=== PATIENT | male | born 1990 | race Caucasian/White ===

== ENCOUNTER 2017-02-10 15:26 | Inpatient (IN) | payer BC ==
[~2017-02-10] VITALS: Ht 172.7 cm; Wt 70.0 kg
[2017-02-10] MEDS ORDERED: IPRATROPIUM 0.02% SOLN 0.5MG/2.5 ML NEB INH ONE (15:45)
[2017-02-10] MEDS ORDERED: ALBUTEROL SULFATE 2.5 MG/0.5 ML INH NEB SOLN INH ONE ×2 (15:45)
[2017-02-10] MEDS ORDERED: ALBU17IN2 INH (16:00)
[2017-02-10] MEDS ORDERED: ALBU20IN INH (16:00)
[2017-02-10 16:24] LABS: MEAN CORPUSCULAR HEMOGLOBIN 28.7 pg (27.0-33.0); MEAN CORPUSCULAR HGB CONC 33.2 g/dl (32.0-36.5); MEAN CORPUSCULAR VOLUME 86.6 fl (80.0-96.0); RED CELL DISTRIBUTION WIDTH 12.8 % (11.5-14.5)
[2017-02-10 16:45] LABS: METHADONE URINE NEGATIVE (NEGATIVE)
[2017-02-10 16:54] LABS: ALBUMIN 3.9 GM/DL (3.2-5.2); ALBUMIN/GLOBULIN RATIO 1.08 (1.00-1.93); ALKALINE PHOSPHATASE 92 U/L (45-117); ALT/SGPT 367 U/L (12-78); ANION GAP 8 MEQ/L (8-16); AST/SGOT 207 U/L (15-37); BILIRUBIN,DIRECT 0.3 MG/DL (0.0-0.2); BILIRUBIN,TOTAL 0.6 MG/DL (0.2-1.0); BLOOD UREA NITROGEN 11 MG/DL (7-18); CALCIUM LEVEL 8.8 MG/DL (8.5-10.1); CARBON DIOXIDE LEVEL 29 MEQ/L (21-32); CHLORIDE LEVEL 106 MEQ/L (98-107); CREATININE FOR GFR 1.02 MG/DL (0.70-1.30); GLOMERULAR FILTRATION RATE > 60.0 (>60); GLUCOSE, FASTING 86 MG/DL (70-105); POTASSIUM SERUM 4.6 MEQ/L (3.5-5.1); SODIUM LEVEL 143 MEQ/L (136-145); TOTAL PROTEIN 7.5 GM/DL (6.4-8.2)
[2017-02-10] MEDS ORDERED: LORazepam 1 MG TAB PO ONE (20:00)
[2017-02-11] MEDS ORDERED: ADV500INH INH (12:15)
[2017-02-11] MEDS ORDERED: ALB2.5NEB INH (12:15)
[2017-02-11 18:23] VITALS: BP 130/80
[2017-02-11] MEDS: ALBUTEROL 90 MCG/ACT 8GM HFA INHALER INH PRN ×2 (18:35→21:49)
[2017-02-11] MEDS ORDERED: MOM 30ML SUSPENSION UDC PO PRN (19:00)
[2017-02-11] MEDS ORDERED: MAALOX 30 ML SUSP *UDC PO PRN (19:00)
[2017-02-11] MEDS ORDERED: ALBUTEROL SULFATE 2.5 MG/0.5 ML INH NEB SOLN NEB PRN (19:00)
[2017-02-11] MEDS: traZODone 50 MG TAB PO PRN (21:32)
[2017-02-11] MEDS: ADVAIR DISKUS 500/50 INH PWD INH SCH (21:33)
[2017-02-11] MEDS: ACETAMINOPHEN TAB 650MG DOSE (2X325MG) PO PRN (21:33)
[2017-02-12 06:39] VITALS: BP 133/68
[2017-02-12] MEDS: ADVAIR DISKUS 500/50 INH PWD INH SCH ×2 (08:54→20:35)
[2017-02-12] MEDS: ALBUTEROL 90 MCG/ACT 8GM HFA INHALER INH PRN ×2 (08:54→20:35)
--- NOTE | 2017-02-12 09:59 | HPEPDOC ---
Medical History and Physical Date of Admission Feb 11, 2017 at 14:03 History and Physical PCP: [facility] ATTENDING: Dr. Matthew Stokes HPI:26yoM admitted to [facility] for other specified depressive disorder, being medically examined today. No acute medical complaints today. Denies any fevers, chills, weakness, fatigue, JACOBO, CP, SOB, cough, palpitations, abdominal pain, N/V /D or changes in bowel or bladder habits. PMHx: Depression Anxiety Substance use Asthma Chronic hepatitis C PSHX: Tooth extraction SOCHX: Resides in: [place] Marital Status: Single Kids: 1 Employment: [employer] Tobacco use: Denies ETOH: Denies Illicit Drugs: History of heroin, crack, cocaine, marijuana. States he went to rehabilitation at [facility] and finished 10/02/16. Relapsed 3 days ago on crack cocaine. IV Drug Use: History of heroin Tattoos done unprofessionally: Denies FAMHX: Mother: Alive, well Father: Alive, well Siblings: 2 sisters Alive, well Children: Alive, well Unexpected deaths due to medical reasons: None. ROS: As noted in HPI, otherwise 11pt ROS of systems reviewed and unremarkable PE: GEN: 26yoM, appears stated age. Well-nourished, well developed. No acute distress. Alert and oriented x 3. Pleasant, interactive. HEENT: Normocephalic, atraumatic. Pupils are equal, round, and reactive to light. Extraocular movements are intact. No nystagmus appreciated. Sclera are nonicteric. Conjunctiva without injection. Nose midline. Nasal turbinates without bogginess. EACs both patent BL. TMs both visualized and tamez with good cone of light, no bulging or erythema. No facial asymmetry. Moist mucous membranes. Dentition fair. Pharynx pink and moist, no cobblestoning. Neck supple , trachea midline. No lymphadenopathy or thyromegaly appreciated. CHEST: Regular rate and rhythm, +S1, +S2 LUNGS: Clear to auscultation bilaterally. No wheezes, rales, or rhonchi. Breathing appears symmetric and easy. Patient is speaking in full sentences. No accessory muscle use. ABD: Round, soft, non-tender, non-distended. +Bowel sounds throughout. No rebound or guarding. No costovertebral angle tenderness. EXT: Pulses 2+ bilaterally dorsalis pedis and radial. No lower extremity edema appreciated. SKIN: [place], dry, warm. Capillary refill <2sec. No rashes. NEURO: Alert and oriented x 3. Cranial nerves III-XII are intact. No focal deficits appreciated. EKG: Pending. A&P: 26yoM admitted to [facility] for other specified depressive disorder 1. Psych. Plan per Psychiatry. Obtain baseline EKG to assure the safety of psychiatric medications as they can prolong the QT interval. 2. Asthma. Continue Advair. Continue albuterol 2 puffs every 4 hours as needed. 3. Chronic hepatitis C. Additional testing requested including quantitative RNA , fibrosure, genotype. Arrange appointment with infectious disease at discharge. 4. Elevated LFTs. Recheck CMP. Check right upper quadrant ultrasound. Possibly related to chronic hepatitis C. 5. Follow up with PCP on discharge. 6. Substance use. Per psychiatry. Vital Signs Vital Signs Label Value Date Time Patient Temperature 97.0 degrees F 02/12/17 0639 Temperature Source Tympanic 02/12/17 0639 Pulse 97 02/12/17 0639 Respiratory Rate 16 bpm 02/12/17 0639 Blood Pressure Assessment 133/68 (89) 02/12/17 0639 Bedside Pulse Oximetry 94 % 02/11/17 1823 Item Value Date Time Oxygen Delivery Method Room Air 02/11/17 182 Laboratory Data Labs 24H Item Value Date Time White Blood Count 6.0 K/mm3 02/10/17 1607 Red Blood Count 5.58 M/mm3 02/10/17 1607 Hemoglobin 16.0 g/dl 02/10/17 1607 Hematocrit 48.3 % 02/10/17 1607 Mean Corpuscular Volume 86.6 fl 02/10/17 1607 Mean Corpuscular Hemoglobin 28.7 pg 02/10/17 1607 Mean Corpuscular Hemoglobin Concent 33.2 g/dl 02/10/17 1607 Red Cell Distribution Width 12.8 % 02/10/17 1607 Platelet Count 217 k/mm3 02/10/17 1607 Sodium Level 143 MEQ/L 02/10/17 1607 Potassium Level 4.6 MEQ/L 02/10/17 1607 Chloride Level 106 MEQ/L 02/10/17 1607 Carbon Dioxide Level 29 MEQ/L 02/10/17 1607 Anion Gap 8 MEQ/L 02/10/17 1607 Blood Urea Nitrogen 11 MG/DL 02/10/17 1607 Creatinine 1.02 MG/DL 02/10/17 1607 Glomerular Filtration Rate > 60.0 02/10/17 1607 Fasting Glucose 86 MG/DL 02/10/17 1607 Calcium Level 8.8 MG/DL 02/10/17 1607 Total Bilirubin 0.6 MG/DL 02/10/17 1607 Direct Bilirubin 0.3 MG/DL H 02/10/17 1607 Aspartate Amino Transf (AST/SGOT) 207 U/L H 02/10/17 1607 Alanine Aminotransferase (ALT/SGPT) 367 U/L H 02/10/17 1607 Alkaline Phosphatase 92 U/L 02/10/17 1607 Total Protein 7.5 GM/DL 02/10/17 1607 Albumin 3.9 GM/DL 02/10/17 1607 Albumin/Globulin Ratio 1.08 02/10/17 1607 Thyroid Stimulating Hormone (TSH) 0.717 uIU/ML 02/10/17 1607 Salicylates Level < 1.7 MG/DL L 02/10/17 1607 Urine Opiates Screen NEGATIVE 02/10/17 1607 Urine Methadone Screen NEGATIVE 02/10/17 1607 Acetaminophen Level < 2.0 UG/ML L 02/10/17 1607 Urine Barbiturates Screen NEGATIVE 02/10/17 1607 Urine Phencyclidine Screen NEGATIVE 02/10/17 1607 Urine Amphetamines Screen NEGATIVE 02/10/17 1607 Urine Benzodiazepines Screen NEGATIVE 02/10/17 1607 Urine Cocaine Metabolite Screen POSITIVE H 02/10/17 1607 Urine Cannabinoids Screen NEGATIVE 02/10/17 1607 Ethyl Alcohol Level < 0.003 % 02/10/17 1607 Home Medications Scheduled Salmeterol/Fluticasone (Advair Diskus 500-50 Mcg/Dose) 28 Puff/Inhaler Aerp 1 PUFF INH BID Scheduled PRN Albuterol Sulfate (Proventil Hfa) 167 Puff/6.7 Gm Aers 2 PUFFS INH QID PRN PRN SHORTNESS OF BREATH Albuterol Sulfate (Albuterol Sulfate) 2.5 Mg/0.5 Ml Neb 2.5 MG INH Q6H PRN PRN SHORTNESS OF BREATH Allergies Coded Allergies: No Known Allergies (Unverified , 02/10/17) Viktoriya Stokes Feb 12, 2017 09:59
[2017-02-12] MEDS: ACETAMINOPHEN TAB 650MG DOSE (2X325MG) PO PRN ×2 (13:48→20:35)
[2017-02-12 14:10] LABS: ALBUMIN 3.9 GM/DL (3.2-5.2); ALBUMIN/GLOBULIN RATIO 1.18 (1.00-1.93); ALKALINE PHOSPHATASE 96 U/L (45-117); ALT/SGPT 308 U/L (12-78); ANION GAP 13 MEQ/L (8-16); AST/SGOT 148 U/L (15-37); BILIRUBIN,TOTAL 0.5 MG/DL (0.2-1.0); BLOOD UREA NITROGEN 9 MG/DL (7-18); CARBON DIOXIDE LEVEL 22 MEQ/L (21-32); CHLORIDE LEVEL 106 MEQ/L (98-107); CREATININE FOR GFR 0.99 MG/DL (0.70-1.30); GLOMERULAR FILTRATION RATE > 60.0 (>60); GLUCOSE, FASTING 118 MG/DL (70-105); POTASSIUM SERUM 4.3 MEQ/L (3.5-5.1); SODIUM LEVEL 141 MEQ/L (136-145); TOTAL PROTEIN 7.2 GM/DL (6.4-8.2)
[2017-02-12 18:00] VITALS: BP 133/69
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
[2017-02-12] MEDS: traZODone 50 MG TAB PO PRN (20:35)
--- NOTE | 2017-02-13 00:44 | ECGEPIP ---
Stationary ECG Study [facility] Test Date: 2017-02-12 Pat Name: BREA HERMAN Department: Room: [place] [address] Gender: M [employer] Teacher: DAHLIA : 1990 Requested By: Viktoriya Stokes Order Number: [id number] Reading MD: Moe Siddiqi Measurements Intervals [place] Rate: 68 P: 78 IL: 159 QRS: 84 QRSD: 94 T: 73 QT: 374 QTc: 400 Interpretive Statements SINUS RHYTHM WITH SINUS ARRHYTHMIA POSSIBLE LEFT ATRIAL ENLARGEMENT INCOMPLETE RIGHT BUNDLE BRANCH BLOCK NO PRIOR TRACING Electronically Signed On 02-13-2017 0:44:34 EDT by Moe Siddiqi
[2017-02-13 06:00] VITALS: BP 115/60
[2017-02-13 08:48] LABS: ALBUMIN 3.7 GM/DL (3.2-5.2); ALBUMIN/GLOBULIN RATIO 1.16 (1.00-1.93); ALKALINE PHOSPHATASE 87 U/L (45-117); ALT/SGPT 257 U/L (12-78); ANION GAP 9 MEQ/L (8-16); AST/SGOT 102 U/L (15-37); BILIRUBIN,TOTAL 0.5 MG/DL (0.2-1.0); BLOOD UREA NITROGEN 7 MG/DL (7-18); CALCIUM LEVEL 8.8 MG/DL (8.5-10.1); CARBON DIOXIDE LEVEL 29 MEQ/L (21-32); CHLORIDE LEVEL 105 MEQ/L (98-107); CREATININE FOR GFR 1.01 MG/DL (0.70-1.30); GLOMERULAR FILTRATION RATE > 60.0 (>60); GLUCOSE, FASTING 84 MG/DL (70-105); POTASSIUM SERUM 4.2 MEQ/L (3.5-5.1); SODIUM LEVEL 143 MEQ/L (136-145); TOTAL PROTEIN 6.9 GM/DL (6.4-8.2)
[2017-02-13] MEDS: ADVAIR DISKUS 500/50 INH PWD INH SCH ×2 (08:50→20:27)
[2017-02-13 10:25] LABS: HEPATITIS B SURFACE ANTIBODY POSITIVE (POSITIVE)
[2017-02-13 18:00] VITALS: BP 124/75
[2017-02-13] MEDS: traZODone 50 MG TAB PO PRN (23:00)
[2017-02-13] MEDS: ALBUTEROL 90 MCG/ACT 8GM HFA INHALER INH PRN (23:01)
[2017-02-13] MEDS: ACETAMINOPHEN TAB 650MG DOSE (2X325MG) PO PRN (23:01)
[2017-02-14 06:23] VITALS: BP 148/99
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
--- NOTE | 2017-02-14 08:22 | REP ---
Abdominal right upper quadrant ultrasound for elevated liver function tests: There is no cholelithiasis, gallbladder wall thickening or pericholecystic fluid. The gallbladder is partially contracted despite the patient being n.p.o. since midnight. There is no intrahepatic or extrahepatic biliary duct dilatation, the common duct is 2.7 mm diameter. The hepatic parenchyma is homogeneous. There are no hepatic masses. The visualized portion of the pancreatic head is unremarkable. The right kidney is normal size measuring 11.4 cm craniocaudad length. There is no right renal hydronephrosis, calculus, mass or cyst. There is no free fluid in the abdominal right upper quadrant. Impression: Essentially negative abdominal right upper quadrant ultrasound. Signed by Julius Sauer MD 02/14/2017 08:13 A
[2017-02-14] MEDS: ADVAIR DISKUS 500/50 INH PWD INH SCH ×2 (09:35→23:07)
[2017-02-14 18:00] VITALS: BP 125/82
--- NOTE | 2017-02-14 19:33 | IPN ---
DATE: 02/14/2017 Discussed Mr. Krause with discharge planning. Discharge planning also called the mother as I did yesterday. Apparently, mother is getting the joshua to the apartment and apparently, according to her, the apartment of Mr. Krause will be available through March. If he gets evicted, it would still take until April for him to leave. He has repeatedly told the office workforce planner that he does not want to go to rehabilitation. We will, once again, suggest inpatient rehabilitation and psychiatric followup to evaluate his possible bipolar disorder. No medication at this time. The patient's eye contact is good. Speech is still somewhat rapid with increased volume. He denies hallucinations, delusions, obsessions, compulsions, phobias. His affect is bright. Judgment is poor. Mood is good. He is fully oriented with full fund of information, denying obsessions, compulsions, and phobias. PLAN: Suggest to patient the need for further inpatient rehabilitation and evaluation. DIAGNOSES: 1. Adjustment disorder with depressed mood. 2. Polysubstance dependence. 3. Rule out bipolar disorder. Prognosis is poor based on patient's past history and drug use.
[2017-02-14] MEDS: traZODone 50 MG TAB PO PRN (23:06)
[2017-02-15 06:22] VITALS: BP 137/73
[2017-02-15 08:36] LABS: ALBUMIN 3.6 GM/DL (3.2-5.2); ALBUMIN/GLOBULIN RATIO 1.03 (1.00-1.93); ALKALINE PHOSPHATASE 87 U/L (45-117); ALT/SGPT 216 U/L (12-78); ANION GAP 9 MEQ/L (8-16); AST/SGOT 97 U/L (15-37); BILIRUBIN,TOTAL 0.3 MG/DL (0.2-1.0); BLOOD UREA NITROGEN 11 MG/DL (7-18); CALCIUM LEVEL 8.6 MG/DL (8.5-10.1); CARBON DIOXIDE LEVEL 30 MEQ/L (21-32); CHLORIDE LEVEL 104 MEQ/L (98-107); CREATININE FOR GFR 0.94 MG/DL (0.70-1.30); GLOMERULAR FILTRATION RATE > 60.0 (>60); GLUCOSE, FASTING 105 MG/DL (70-105); POTASSIUM SERUM 4.3 MEQ/L (3.5-5.1); SODIUM LEVEL 143 MEQ/L (136-145); TOTAL PROTEIN 7.1 GM/DL (6.4-8.2)
[2017-02-15] MEDS: ADVAIR DISKUS 500/50 INH PWD INH SCH ×2 (09:12→20:44)
[2017-02-15 18:00] VITALS: BP 134/68
[2017-02-15] MEDS: ACETAMINOPHEN TAB 650MG DOSE (2X325MG) PO PRN (20:45)
[2017-02-15] MEDS: traZODone 50 MG TAB PO PRN (23:20)
--- NOTE | 2017-02-16 00:11 | IPN ---
DATE: 02/15/2017 Met with Mr. Krause, and I have discussed with him his need to ensure that he has outpatient plans. The patient does not want to go to inpatient drug rehabilitation despite our recommendation. internet media planner and myself have spoken with his mother . The patient will be returning to his apartment apparently and his outpatient planning will be both in mental health and in drug rehabilitation. MENTAL STATUS EXAMINATION: The patient is pleasant in appearance and appropriate. Eye contact is good. Speech volume is normal, slightly rapid and mood is good, affect is bright. Denies hallucinations or delusions. Intact memory, immediate and remote. Orientation is full in three spheres. There are no loose associations. He denies suicidal and homicidal ideation. His judgment is poor. PLAN: Discharge for Saturday. Prognosis at this time is guarded due to patient's long-term drug abuse and personality issues. No medications at this time except for as needed medications. MTDD
[2017-02-16 06:37] VITALS: BP 120/58
[2017-02-16] MEDS: ADVAIR DISKUS 500/50 INH PWD INH SCH ×2 (09:27→21:48)
[2017-02-16] MEDS: ALBUTEROL 90 MCG/ACT 8GM HFA INHALER INH PRN ×2 (09:27→21:48)
[2017-02-16] MEDS: ACETAMINOPHEN TAB 650MG DOSE (2X325MG) PO PRN ×2 (09:28→21:49)
[2017-02-16 10:11] LABS: ALT 303 IU/L (0-55); FIBROSIS STAGE F1-F2 (.); GGT 45 IU/L (0-65); HAPTOGLOBIN 69 mg/dL (34-200); HEPATITIS C QUANTITATION 2801920 IU/mL (.); HEPATITIS C VIRUS GENOTYPE 3 (.); NECROINFLAMM GRADE A3-Severe activity (.); TOTAL BILIRUBIN 0.5 mg/dL (0.0-1.2)
[2017-02-16 18:00] VITALS: BP 133/79
[2017-02-16] MEDS: traZODone 50 MG TAB PO PRN (21:48)
[2017-02-17 06:39] VITALS: BP 104/56
[2017-02-17] MEDS: ALBUTEROL 90 MCG/ACT 8GM HFA INHALER INH PRN (08:57)
[2017-02-17] MEDS: ACETAMINOPHEN 500 MG TAB PO PRN ×2 (08:57→21:26)
[2017-02-17] MEDS: ADVAIR DISKUS 500/50 INH PWD INH SCH ×2 (08:57→21:25)
[2017-02-17 18:00] VITALS: BP 141/78
--- NOTE | 2017-02-17 18:08 | IPN ---
DATE: 02/16/2017 SUBJECTIVE: Mr. Krause asked to see me today with his sister. Apparently, in discussing with his mother last night, he has decided that he wants to go to inpatient drug rehabilitation. I will speak with discharge planning on Saturday or Saturday concerning that. His sister stated she has not seen him with mood swings when he was sober. The patient states, "I need to better myself." The patient states, "If I leave to outpatient, I will just go back to drugs." MENTAL STATUS EXAMINATION: The patient is pleasant in appearance and appropriate. Eye contact is good. Speech volume is normal, and normal rate and rhythm. Mood is good. Affect is bright. Denies hallucinations or delusions. Immediate and remote memory are intact. Orientation is full in three spheres. There are no loose associations. He denies suicidal or homicidal ideations. His judgment is improved. PLAN: We will discussing inpatient drug rehabilitation and treatment possibilities with discharge planning staff on Saturday or Saturday.
[2017-02-17] MEDS: traZODone 50 MG TAB PO PRN (21:25)
--- NOTE | 2017-02-17 22:09 | IPN ---
DATE: 02/17/2017 SUBJECTIVE: Mr. Krause met with me yesterday and decided he would like to attend inpatient drug rehabilitation. His mood is good. There is some flirtation occurring on the unit. We will be discussing with discharge planning Saturday or Saturday as to the possibility of inpatient rehabilitation alternative. Due to his chronic abuse, outpatient treatment would be a questionable placement. MENTAL STATUS EXAMINATION: The patient is pleasant in appearance and appropriate. Eye contact is good. Speech volume is normal and mood is good. Affect is bright. He denies hallucinations or delusions. Discussion with his sister yesterday indicated less evidence of a possible bipolar disorder. His memory for immediate and remote is intact. Orientation is full in three spheres. No loose associations. He denies suicidal or homicidal ideations. His judgment continues to be poor. PLAN: Discharge planning now changed due to patient's request to do drug rehabilitation treatment. No medication use at this time.
[2017-02-18 06:33] VITALS: BP 118/56
--- NOTE | 2017-02-18 09:24 | IPN ---
DATE OF VISIT: 02/18/2017 I met with Mr. Barr today and he continues to want to attend inpatient drug rehabilitation. His mood is good. I will be discussing his decision with discharge planning staff today or Saturday as the possibility of what his inpatient rehabilitation choices are. As I have stated in previous notes, outpatient is a questionable placement for his chronic condition. MENTAL STATUS EXAMINATION: The patient is pleasant in appearance and appropriate. His eye contact is good. His speech volume is normal. Mood is good. Affect is bright. He denies hallucinations or delusions. No indications today of any manic behavior or speech or affect. His memory for immediate, remote is intact. He is oriented in three spheres with no loose associations. Denies suicidal or homicidal ideation. His judgment is improved. PLAN: Discharge planning will be notified as to patient's plan for inpatient treatment. No medication use at this time.
[2017-02-18] MEDS: ADVAIR DISKUS 500/50 INH PWD INH SCH ×2 (10:10→21:15)
[2017-02-18] MEDS: ACETAMINOPHEN 500 MG TAB PO PRN ×2 (13:10→19:00)
[2017-02-18 18:00] VITALS: BP 111/58
[2017-02-18] MEDS: traZODone 50 MG TAB PO PRN (21:15)
[2017-02-19 06:30] VITALS: BP 118/56
[2017-02-19] MEDS: ADVAIR DISKUS 500/50 INH PWD INH SCH ×2 (08:33→22:46)
[2017-02-19] MEDS: ACETAMINOPHEN 500 MG TAB PO PRN ×3 (08:33→22:47)
--- NOTE | 2017-02-19 09:25 | REP ---
Left lower extremity Duplex Doppler venous ultrasound: Real time compression and duplex Doppler interrogation of the left lower extremity deep venous system is performed. The left common femoral, superficial femoral and popliteal veins are fully compressible with transducer pressure and demonstrate normal spontaneous and phasic flow, without evidence of deep venous thrombosis. Impression: No evidence of deep venous thrombosis of the left lower extremity femoral popliteal venous system. Signed by Julius Simental MD 02/19/2017 09:17 A
--- NOTE | 2017-02-19 09:44 | IPNPDOC ---
Subjective Date Seen The patient was seen on 02/19/17. Subjective Chief Complaint/HPI The patient is a 26-year-old male admitted with a reason for visit of Other Specified Depressive Disorder. Events since last encounter Stated to evaluate the patient for left calf discomfort. The patient states his left calf is achy. He states this started yesterday. He has been walking around on hard floors without shoes and he does have a history of chronic low back pain. He does not have any calf swelling or erythema. No edema in lower extremity. Pulmonary: Denies: Cough, Dyspnea Cardiovascular: Denies: Chest Pain, Lt Headedness, Orthopnea, Palpitations, Paroxysmal Noc. Dyspnea Gastrointestinal: Denies: Abdominal Pain, Constipation, Diarrhea, Nausea, Vomiting Objective Physical Examination General Exam: Positive: Alert Eye Exam: Positive: PERRLA Chest Exam: Positive: Clear to auscultation, Normal air movement Heart Exam: Positive: Normal S1, Normal S2, Rate Normal, Regular Rhythm, Negative: Murmurs, Rubs Extremity Exam: Positive: Normal pulses, Negative: Clubbing, Cyanosis, Edema, Other (no cording, negative Homans), Swelling, Tenderness Assessment /Plan Problems (1) Pain of left calf Status: Acute Problem Text: * Check ultrasound of left lower extremity to rule out DVT (2) Chronic low back pain Status: Chronic Problem Text: * Continue Tylenol as needed Plan/VTE VTE Prophylaxis Ordered?: No (ambulatory) VS, I&O, 24H, Fishbone Vital Signs/I&O Vital Signs Date Time Temp Pulse Resp B/P Pulse Ox O2 Delivery O2 Flow Rate FiO2 02/19/17 06:30 98.4 56 14 118/56 Viktoriya Stokes Feb 19, 2017 09:44
--- NOTE | 2017-02-19 12:03 | IPN ---
DATE: 02/19/2017 I met with Mr. Krause today, discussing his inpatient drug rehabilitation. Apparently, our mission planner has located a bed for him and he will be going to inpatient substance abuse rehabilitation. I discussed with him to not seek medication for his anxiety, as he will now have to learn to now use medications for various conditions. MENTAL STATUS EXAMINATION: His mental status is pleasant in appearance and appropriate. Eye contact is good. His speech volume is normal. His mood is good. Affect is bright. He denies hallucinations, delusions. No indications today of any significant elevated affect or rapid speech. His memory for immediate and remote is intact. He is oriented in three spheres. No loose associations. Denies suicidal or homicidal ideations. Judgment is improved. PLAN: Discharge planning to long-term substance abuse treatment will be made and he will be discharged later this week. DIAGNOSIS: Adjustment disorder with depressed mood, polysubstance dependence. BHAVIND
[2017-02-19 18:00] VITALS: BP 131/75
[2017-02-19] MEDS: traZODone 50 MG TAB PO PRN (22:46)
[2017-02-20 06:13] VITALS: BP 124/61
[2017-02-20] MEDS: ADVAIR DISKUS 500/50 INH PWD INH SCH ×2 (08:29→20:11)
--- NOTE | 2017-02-20 09:38 | IPN ---
DATE OF SERVICE: 02/20/2017 I met with Mr. Krause today, and we continued to discuss his readiness for inpatient drug rehabilitation. We have located a bed for him. He will be going to inpatient substance abuse rehabilitation on Saturday. I have discussed with him again not to seek medication for anxieties, as he will now have to learn how to not use medications for various conditions. MENTAL STATUS EXAMINATION: He is pleasant in appearance and appropriate. His eye contact is good. His speech volume is normal. His mood is good. His affect is bright. He denies hallucinations, delusions, obsessions, compulsions, or phobias. No indications of any significant elevated affect or rapid speech. His memory for immediate and remote is intact. He is oriented in three spheres. He has no loose associations. He denies suicidal or homicidal ideation. His judgment is improved. DIagnosis: Adjustment Disorder with Mixed features..Poly Substance Abuse Personality Disorder Discharge plan to long-term substance abuse will be made. He will be discharged this week. YURI
[2017-02-20 18:26] VITALS: BP 137/74
[2017-02-20] MEDS: ACETAMINOPHEN 500 MG TAB PO PRN (20:12)
[2017-02-20] MEDS: traZODone 50 MG TAB PO PRN (22:58)
[2017-02-21 06:31] VITALS: BP 109/58
[2017-02-21] MEDS: ADVAIR DISKUS 500/50 INH PWD INH SCH ×2 (09:36→21:59)
--- NOTE | 2017-02-21 15:19 | IPN ---
DATE: 02/21/2017 I met with Mr. Barr today and we discussed his plans for inpatient drug rehabilitation tomorrow morning. I filled out his QMP. There was some concern of his going into other patient's rooms, etcetera. I clarified with him his need to monitor and reevaluate his own behavior besides from his drug abuse and that he should seriously evaluate his past behavior and how it has hurt his life. He has made no more requests for medications. MENTAL STATUS EXAMINATION: He is pleasant in appearance and appropriate. His eye contact is good. His speech volume is normal. Mood is good. His affect is bright. He denies hallucinations, delusions, obsessions, compulsions, or phobias. He has no indications of any significantly elevated affect of rapid speech. His memory for immediate and remote is intact. He is oriented in three spheres. No loose associates. Denying suicidal or homicidal ideation. Judgment is improved. DIAGNOSES: 1. Adjustment disorder with mixed features. 2. Polysubstance abuse. 3. Personality disorder. Discharge planned for tomorrow morning to rehabilitation program.
[2017-02-21 18:00] VITALS: BP 131/58
[2017-02-21] MEDS: traZODone 50 MG TAB PO PRN (21:59)
[2017-02-21] MEDS: ACETAMINOPHEN 500 MG TAB PO PRN (21:59)
[2017-02-22 06:18] VITALS: BP 122/58
[2017-02-22] MEDS: ADVAIR DISKUS 500/50 INH PWD INH SCH (07:40)
--- NOTE | 2017-02-22 11:29 | MHDS ---
DATE OF ADMISSION: 02/11/2017 DATE OF DISCHARGE: 02/22/2017 This 26-year-old male, admitted 02/11/3017, according to the police and mother, was text messaging his girlfriend and his mother that he was going to "knock himself off." He was also seen talking to a girl on the phone, which they thought was his mother. He states it was his girlfriend, that he was going to "cut himself and bleed out" with a pen knife that he had. The patient states, "my mother called the clinical education specialist." "She was worried I was going to commit suicide." "My mother came with her boyfriend and took my vehicle. I am not mentally stable." The patient states that two years ago "I was admitted to [facility] when I broke down when my stepfather ." The patient states, "I presently work at [employer] and [employer] two jobs at 50 hours a week." "My mother set me up for this admission, she does not want me to be in society." The patient states that he has a chemical imbalance and "I am not all there." The patient has had a long history of drug use and has recently relapsed on moving to [place]. His mother has gotten him an automobile and helped him get work. LEGAL HISTORY: The patient was arrested in 2009 for endangering the welfare of a child. Apparently, at that time, he had a girlfriend who was 16 when he was 18. DRUG HISTORY: The patient is a heroin addict, who has been in rehabilitation previously, but has relapsed on crack cocaine and other drugs. He has a history of drug use, including heroin, crack cocaine, methamphetamine, and Shira use. EDUCATION HISTORY: He is a high school graduate. EMPLOYMENT HISTORY: The patient has had numerous jobs. He is presently at [employer] and [employer] in [place]. SOCIAL HISTORY: He is single with one child, 6-year-old. The patient states that he previously used alcohol and states that he quit in November. This was when he was found drinking at his mother's house where he was living. MEDICAL HISTORY: Positive for hepatitis and asthma. Hepatitis C, he states motivated him to quit drinking alcohol. MEDICATION HISTORY: He takes asthma medications, albuterol and Advair. Progress note of 02/14/2017, mother notified us that she was getting the joshua to the apartment, that she had gotten the apartment that Mr. Krause was in. His main concern at that time was getting evicted and losing his job. He repeatedly stated that he did not want to go to rehabilitation despite our suggestions. On 02/15/2017, I continued to suggest that this patient's prognosis was guarded due to history of theft, drug use, and lying. In addition, his continued relapse. On 02/16/2017, the patient decided that he wanted to go into the inpatient drug rehabilitation following a talk with his mother. The patient stated, "I need to better myself." "If I leave to go to outpatient, I will just go back to drugs." On 02/17/2017, discharge planning was engaging in attempting to find this patient an inpatient rehabilitation bed. Due to the patient's high mood and rapid speech on his initial days of admission, I was concerned about the possibility of a bipolar disorder, but as the patient stayed here that suspicion was diminished as his mood stabilized and his speech became of normal rate and rhythm. The patient did attempt to seek some medication for anxiety and was instructed that he would have to find other ways of dealing with his anxiety, which seemed to be a rare occurrence on the patient inpatient unit. An inpatient bed was located and the patient will be discharged today, 02/22/2017, to inpatient substance abuse rehabilitation. Hematology examination was normal with no significant abnormalities. His liver values were elevated, AST 97, ALT 216. His liver fibrosis score was 0.33. His toxicology screen on admission was positive for cocaine metabolites. His serology screen was positive for HCV RNA and hepatitis C AB index was elevated. DISCHARGE MENTAL STATUS EXAMINATION: His speech was normal. Thought process showed no disturbances. No loose associations were noted. He had no hallucinations or delusions, obsessions, compulsions or phobias. Judgment and insight continued to be fair. He was fully oriented in three spheres. No disturbances of recent and remote memory were noted. Attention and concentration were improved. No disturbances of language. Full fund of knowledge. Mood was good. Affect was bright. DISCHARGE DIAGNOSES: 1. Adjustment disorder with depressed mood. 2. Polysubstance abuse. DISCHARGE PLAN: To inpatient substance rehabilitation.
== END 2017-02-22 08:00 | DRG 754 ==
LOC: M ED 15:34 → M ED INP 02-11 14:03 → M PSY 02-11 17:46
PROVIDERS: ADMIT Psychiatry & Neurology Psychiatry; ATTEND Psychiatry & Neurology Child & Adolescent Psychiatry
DX: F43.21 Adjustment disorder with depressed mood (principal); F19.10 Other psychoactive substance abuse, uncomplicated; J45.909 Unspecified asthma, uncomplicated; F60.9 Personality disorder, unspecified; B18.2 Chronic viral hepatitis C; M79.662 Pain in left lower leg; M54.5 Low back pain; R94.5 Abnormal results of liver function studies; Z79.899 Other long term (current) drug therapy

== ENCOUNTER 2017-03-21 16:34 | Emergency (ER) | payer BC, SELFPAY ==
[~2017-03-21] VITALS: Ht 172.7 cm; Wt 74.8 kg
[~2017-03-21 16:34] MED LIST: ADV500INH INH; ALB2.5NEB INH; ALBU17IN2 INH; ALBU20IN INH
[2017-03-21 16:35] VITALS: BP 143/73
[2017-03-21] MEDS ORDERED: PRED20TA PO (17:01)
[2017-03-21] MEDS ORDERED: CHERSYP3 PO (17:01)
[2017-03-21] MEDS ORDERED: ALBU83IN INH (17:01)
[2017-03-21] MEDS ORDERED: ALBU17IN2 INH (17:01)
[2017-03-21] MEDS ORDERED: OSEL75CA PO (17:01)
[2017-03-22] MEDS ORDERED: PRED20TA PO (11:12)
== END 2017-03-21 17:18 | disposition home or self-care (01) ==
LOC: M ED 17:01
DX: J45.901 Unspecified asthma with (acute) exacerbation (principal); J06.9 Acute upper respiratory infection, unspecified; Z79.51 Long term (current) use of inhaled steroids

== ENCOUNTER 2017-03-22 10:35 | Emergency (ER) | payer SELFPAY ==
[~2017-03-22] VITALS: Ht 172.7 cm; Wt 72.6 kg
[2017-03-22 10:35] VITALS: BP 144/71
[~2017-03-22 10:35] MED LIST changes: +ALBU83IN INH; +CHERSYP3 PO; +OSEL75CA PO; +PRED20TA PO
[2017-03-22] MEDS ORDERED: PRED20TA PO (11:12)
[2017-03-22] MEDS ORDERED: IBUPROFEN 600 MG TAB PO ONE (11:15)
[2017-03-22] MEDS ORDERED: ALBUTEROL 90 MCG/ACT 8GM HFA INHALER INH ONE (11:15)
[2017-03-22] MEDS ORDERED: predniSONE 20 MG TAB PO ONE (11:15)
== END 2017-03-22 11:38 | disposition home or self-care (01) ==
LOC: M ED 11:10
DX: J45.901 Unspecified asthma with (acute) exacerbation (principal); J06.9 Acute upper respiratory infection, unspecified; B34.9 Viral infection, unspecified; F19.20 Other psychoactive substance dependence, uncomplicated; Z79.51 Long term (current) use of inhaled steroids; Z79.899 Other long term (current) drug therapy; F17.210 Nicotine dependence, cigarettes, uncomplicated

== ENCOUNTER 2017-03-30 16:26 | Emergency (ER) | payer SELFPAY ==
[~2017-03-30] VITALS: Ht 172.7 cm; Wt 77.1 kg
[2017-03-30] MEDS ORDERED: ACETAMINOPHEN 325 MG TAB PO ONE (17:15)
[2017-03-30] MEDS ORDERED: cefTRIAXone SOD 1 GM VIAL (J0696) IM ONE (18:00)
[2017-03-30] MEDS ORDERED: AZITHROMYCIN 250 MG TAB PO ONE (18:00)
[2017-03-30] MEDS ORDERED: LIDOCAINE 1% MDV 20ML VIAL As Ordered ONE (18:04)
[2017-03-30] MEDS ORDERED: ZITHTAB PO (18:08)
[2017-03-30] MEDS ORDERED: PRED20TA PO (18:08)
[2017-03-30 18:15] VITALS: BP 121/61
--- NOTE | 2017-03-31 09:12 | REP ---
CHEST, TWO VIEWS: HISTORY: Cough. The lungs are clear. The heart is normal in size. The pulmonary vasculature is normal in appearance. The bony structure is intact. IMPRESSION: No acute disease. Signed by Hammad Stock MD 03/31/2017 09:25 A
== END 2017-03-30 18:26 | disposition home or self-care (01) ==
LOC: M ED 17:19
DX: J15.9 Unspecified bacterial pneumonia (principal); H66.91 Otitis media, unspecified, right ear; J45.909 Unspecified asthma, uncomplicated; F33.9 Major depressive disorder, recurrent, unspecified; Z79.51 Long term (current) use of inhaled steroids
CPT/HCPCS: 71020; 96372; 99282; J0696

== ENCOUNTER 2017-05-31 16:54 | Emergency (ER) | payer MEDICAID, SELFPAY ==
[~2017-05-31] VITALS: Ht 172.7 cm; Wt 81.4 kg
[~2017-05-31 16:54] MED LIST changes: +ZITHTAB PO
[2017-05-31 16:55] VITALS: BP 137/89
[2017-05-31] MEDS ORDERED: SING10TA32 PO (17:05)
== END 2017-05-31 17:55 | disposition left against medical advice (07) ==
LOC: M ED 16:54
DX: F99 Mental disorder, not otherwise specified (principal); Z53.29 Procedure and treatment not carried out because of patient's decision for other reasons

== ENCOUNTER 2017-05-31 17:53 | Emergency (ER) | payer MEDICAID, SELFPAY ==
[~2017-05-31] VITALS: Ht 172.7 cm; Wt 81.0 kg
[~2017-05-31 17:53] MED LIST changes: +SING10TA32 PO
[2017-05-31 19:13] VITALS: BP 148/94
== END 2017-05-31 19:17 | disposition home or self-care (01) ==
LOC: M ED 17:53
DX: F19.10 Other psychoactive substance abuse, uncomplicated (principal); F11.20 Opioid dependence, uncomplicated; F12.20 Cannabis dependence, uncomplicated; F14.20 Cocaine dependence, uncomplicated

== ENCOUNTER 2017-07-29 21:31 | Emergency (ER) | payer MEDICAID, OTHER ==
[~2017-07-29] VITALS: Ht 172.7 cm; Wt 77.2 kg
[2017-07-29] MEDS ORDERED: LEVALBUTEROL 1.25 MG/0.5 ML CONCENTRATE NEB INH ONE (22:00)
[2017-07-29] MEDS ORDERED: dexameTHASONE 20 MG/5 ML VIAL (J1100) IV ONE (22:00)
[2017-07-29] MEDS ORDERED: METOCLOPRAMIDE INJ 10MG/2ML VIAL (J2765) IV ONE (22:00)
[2017-07-29] MEDS ORDERED: MAGNESIUM *L&D* 4 GM/100 ML BAG (40MG/ML) (J3475) IV ONE (22:15)
[2017-07-29] MEDS: MAGNESIUM SULFATE 1 GM/100 ML D5W BAG (10MG/ML) (J3475) IV SCH ×2 (22:30→23:23)
[2017-07-30] MEDS: MAGNESIUM SULFATE 1 GM/100 ML D5W BAG (10MG/ML) (J3475) IV SCH ×2 (00:21→01:15)
[2017-07-30] MEDS ORDERED: PRED20TA PO (00:56)
[2017-07-30] MEDS ORDERED: MAG SULF 1GM/100ML (MAG RUN) 1 GM in APPROPRIATE DILUENT 1 EA IV ONE ×6 (01:00)
[2017-07-30 01:18] VITALS: BP 128/64
--- NOTE | 2017-07-30 07:16 | REP ---
Clinical: Dyspnea . Comparison: 03/30/2017 . Technique: PA and lateral. Findings: The mediastinum and cardiac silhouette are normal. The lung gutierrez appear stable and without acute consolidation, effusion, or pneumothorax. The skeletal structures are intact and normal. Impression: 1. No acute cardiopulmonary process. Signed by Geo Schneider MD 07/30/2017 07:08 A
== END 2017-07-30 01:36 | disposition home or self-care (01) ==
LOC: M ED 21:31
DX: J45.909 Unspecified asthma, uncomplicated (principal)
CPT/HCPCS: 71020; 94640; 96374; 96375; 99284; J1100; J2765; J3475

== ENCOUNTER 2017-09-25 04:10 | Emergency (ER) | payer OTHER ==
[2017-09-25] MEDS ORDERED: IPRATROPIUM 0.5MG/ALBUTEROL 2.5MG INH SOL UD 3ML (DUONEB)(J7620) As Ordered ONE (04:36)
[2017-09-25] MEDS ORDERED: MAGNESIUM SULFATE 1 GM/100 ML D5W BAG (10MG/ML) (J3475) As Ordered ONE (04:47)
[2017-09-25] MEDS ORDERED: ONDANSETRON 4MG/2ML VIAL (J2405) As Ordered ONE (04:48)
[2017-09-25 05:30] LABS: BASO # 0.1 10^3/uL (0.0-0.2); BASO % 0.4 % (0.0-1.0); EOS # 0.8 10^3/uL (0.0-0.50); EOS % 6.7 % (0.0-3.0); IMMATURE GRANULOCYTE % 0.3 % (0-0); LYMPH # 1.6 10^3/uL (1.5-6.5); LYMPH % 13.1 % (24.0-44.0); MEAN CORPUSCULAR HGB CONC 33.3 g/dl (32.0-36.5); MONO # 0.9 10^3/uL (0.0-0.8); MONO % 7.3 % (0.0-5.0); NEUTROPHILS # 8.7 10^3/uL (1.8-7.7); NEUTROPHILS % 72.2 % (36.0-66.0); PLATELET COUNT, AUTOMATED 188 10^3/uL (150-450); RED CELL DISTRIBUTION WIDTH 12.6 % (11.5-14.5)
[2017-09-25 05:46] LABS: ANION GAP 4 MEQ/L (8-16); BLOOD UREA NITROGEN 13 MG/DL (7-18); CALCIUM LEVEL 8.7 MG/DL (8.5-10.1); CARBON DIOXIDE LEVEL 32 MEQ/L (21-32); CHLORIDE LEVEL 106 MEQ/L (98-107); CREATININE FOR GFR 1.05 MG/DL (0.70-1.30); GLOMERULAR FILTRATION RATE > 60.0 (>60); GLUCOSE, FASTING 120 MG/DL (70-105); POTASSIUM SERUM 3.9 MEQ/L (3.5-5.1); SODIUM LEVEL 142 MEQ/L (136-145)
[2017-09-25] MEDS ORDERED: PRED20TA PO (07:00)
--- NOTE | 2017-09-25 08:06 | REP ---
PA and lateral chest: Comparison is 2016. Lung gutierrez appear hyperinflated but are otherwise clear. Cardiac size is normal. The nedra, mediastinum, and bony thorax are unremarkable. Impression: Hyperinflation, otherwise negative PA and lateral chest. Signed by Julius Sauer MD 09/25/2017 07:56 A
--- NOTE | 2017-09-25 13:28 | ED PDOC ---
Post-Departure Follow-Up This record was completed partially or completely on paper due to electronic EMR downtime. Please see attached scanned paper record. Anca Mcclendon MD Sep 25, 2017 13:28
== END 2017-09-25 07:16 | disposition home or self-care (01) ==
LOC: M ED 04:10
DX: J45.21 Mild intermittent asthma with (acute) exacerbation (principal)
CPT/HCPCS: 71020; 80048; 85027; 87804; 99283; J2405; J3475

== ENCOUNTER 2017-11-05 10:13 | Observation (INO) | payer OTHER ==
[~2017-11-05] VITALS: Ht 172.7 cm; Wt 105.6 kg
[2017-11-05] MEDS ORDERED: IPRATROPIUM 0.5MG/ALBUTEROL 2.5MG INH SOL UD 3ML (DUONEB)(J7620) NEB ONE (10:30)
[2017-11-05] MEDS ORDERED: MAG SULF 1GM/100ML (MAG RUN) 1 GM in APPROPRIATE DILUENT 1 EA IV ONE (10:30)
[2017-11-05] MEDS ORDERED: methylPREDNISolone INJ 125 MG/2 ML VIAL (J2930) IV ONE (10:30)
[2017-11-05] MEDS ORDERED: methylPREDNISolone INJ 40 MG/1 ML VIAL (J2920) IV ONE (10:30)
[2017-11-05] MEDS ORDERED: ALBUTEROL SULFATE 2.5 MG/0.5 ML INH NEB SOLN As Ordered ONE (10:31)
[2017-11-05] MEDS: ALBUTEROL SULFATE 2.5 MG/0.5 ML INH NEB SOLN NEB PRN ×2 (10:35→11:18)
[2017-11-05] MEDS ORDERED: ALBUTEROL SULFATE 2.5 MG/0.5 ML INH NEB SOLN NEB ONE (11:15)
--- NOTE | 2017-11-05 11:19 | REP ---
Chest one-view HISTORY: Shortness of breath Comparison: 09/25/2017 The lungs are clear. The heart is normal in size. The pulmonary vasculature is normal in appearance. Impression: No acute disease. Signed by Hammad Stock MD 11/05/2017 11:10 A
[2017-11-05 11:46] LABS: BASO # 0.1 10^3/uL (0.0-0.2); BASO % 0.6 % (0.0-1.0); EOS # 1.4 10^3/uL (0.0-0.50); EOS % 16.9 % (0.0-3.0); IMMATURE GRANULOCYTE % 0.5 % (0-0); LYMPH # 1.7 10^3/uL (1.5-6.5); LYMPH % 21.1 % (24.0-44.0); MEAN CORPUSCULAR HEMOGLOBIN 28.9 pg (27.0-33.0); MEAN CORPUSCULAR HGB CONC 33.5 g/dl (32.0-36.5); MEAN CORPUSCULAR VOLUME 86.2 fl (80.0-96.0); MONO # 0.9 10^3/uL (0.0-0.8); MONO % 11.1 % (0.0-5.0); NEUTROPHILS % 49.8 % (36.0-66.0); PLATELET COUNT, AUTOMATED 217 10^3/uL (150-450); RED CELL DISTRIBUTION WIDTH 12.6 % (11.5-14.5); WHITE BLOOD COUNT 8.1 10^3/uL (4.0-10.0)
[2017-11-05 12:00] LABS: ANION GAP 5 MEQ/L (8-16); BLOOD UREA NITROGEN 12 MG/DL (7-18); CALCIUM LEVEL 9.3 MG/DL (8.5-10.1); CARBON DIOXIDE LEVEL 32 MEQ/L (21-32); CHLORIDE LEVEL 104 MEQ/L (98-107); CREATININE FOR GFR 1.02 MG/DL (0.70-1.30); GLOMERULAR FILTRATION RATE > 60.0 (>60); GLUCOSE, FASTING 89 MG/DL (70-105); POTASSIUM SERUM 4.4 MEQ/L (3.5-5.1); SODIUM LEVEL 141 MEQ/L (136-145)
[2017-11-05] MEDS ORDERED: ACETAMINOPHEN TAB 650MG DOSE (2X325MG) PO PRN (13:30)
[2017-11-05] MEDS ORDERED: ALBUTEROL 90 MCG/ACT 8GM HFA INHALER INH PRN (13:30)
[2017-11-05 13:45] LABS: ALBUMIN 4.5 GM/DL (3.2-5.2); ALBUMIN/GLOBULIN RATIO 1.15 (1.00-1.93); ALKALINE PHOSPHATASE 70 U/L (45-117); ALT/SGPT 328 U/L (12-78); AST/SGOT 154 U/L (7-37); BILIRUBIN,DIRECT 0.2 MG/DL (0.0-0.2); BILIRUBIN,TOTAL 0.7 MG/DL (0.2-1.0); TOTAL PROTEIN 8.4 GM/DL (6.4-8.2)
[2017-11-05] MEDS ORDERED: IPRATROPIUM 0.5MG/ALBUTEROL 2.5MG INH SOL UD 3ML (DUONEB)(J7620) NEB PRN (13:45)
--- NOTE | 2017-11-05 13:59 | HPEPDOC ---
General Date of Admission Nov 05, 2017 at 12:21 Attending Physician: THEE STOKES MD Chief Complaint 26-year-old incarcerated male presents to ED for worsening shortness of breath the past 3 days. PMH includes asthma, chronic hep C, depression, anxiety, IV drug abuse. Dyspnea associated with cough with blood-tinged sputum, pleuritic chest pain, wheezing. Positive sick contacts: cellmates have viral/flulike symptoms. Patient states this feels like another asthma attack. Symptoms did not alleviate with steroids left over from previous ED visit and inhaler use. Was recently seen in [facility] ED September 25 for asthma exacerbation. Denies all other ROS including headache, body aches, fevers, chills, weight loss, n/v/d, chest pain. In the ED, CXR and labs were negative. Patient afebrile. Oxygen saturation 90%, patient felt better with Solu-Medrol, Mag run, Duoneb, and 2L NC administered in ED. Home Medications Scheduled Prednisone (Prednisone) 10 Mg Tab, 10 MG PO TAPER Take 4 tabs daily x 3 days, then 3 tabs daily x 3 days, then 2 tabs daily x 3 days, then 1 tab daily x 3 days and stop Scheduled PRN Albuterol Sulfate (Proventil Hfa) 167 Puff/6.7 Gm Aers, 2 PUFFS INH QID PRN for SHORTNESS OF BREATH, (Reported) Allergies Coded Allergies: No Known Allergies (Unverified , 02/10/17) Past Medical History Medical History Asthma Chronic Hep C IV drug abuse Anxiety Depression Surgical History Tooth extraction Family History All healthy per pt Social History IV drug abuse (heroine, crack, cocaine, marijuana). Relapsed after rehab attempts. Sober since incarceration in 06/17 Alcohol use, sober since 06/17 Review of Symptoms Constitutional: Denies: Chills, Fever, Night Sweats, Weakness, Fatigue, Weight Loss Eyes: Denies: Pain, Vision change ENT: Denies: Head Aches, Ear Pain, Dysphagia, Sinus Congestion, Post Nasal Drip , Sore Throat Skin: Denies: Rash, Lesions Pulmonary: Reports: Dyspnea, Cough (productive, blood-tinged sputum), Pleuritic Chest Pain Cardiovascular: Denies: Chest Pain, Palpitations, Edema, Lt Headedness Gastrointestinal: Denies: Nausea, Vomiting, Abdominal Pain, Diarrhea, Constipation, Melena, Hematochezia Genitourinary: Denies: Dysuria, Hematuria Endocrine: Denies: Heat Intolerance, Cold Intolerance Musculoskeletal: Denies: Joint Pain, Muscle Pain, Spasms Neurological: Denies: Weakness, Numbness Psych: Reports: Mood Normal Physical Examination General Exam: Positive: Alert, Cooperative, No Acute Distress Eye Exam: Positive: PERRLA, Conjunctiva & lids normal, EOMI, Negative: Ptosis ENT Exam: Positive: Atraumatic, Mucous membr. moist/pink, Pharynx Normal, Tongue Midline, Negative: Pharyngeal Edema Neck Exam: Positive: Supple, Negative: Lymphadenopathy Chest Exam: Positive: Wheezing (b/l, expiratory) Heart Exam: Positive: Tachycardic, Regular Rhythm, Normal S1, Normal S2 Abdomen Exam: Positive: Normal bowel sounds, Soft, Negative: Tenderness Extremity Exam: Negative: Cyanosis, Edema, Tenderness, Swelling Skin Exam: Positive: Nl turgor and temperature, Other skin issue (multiple tattoos) Neuro Exam: Positive: Normal Speech, Strength at 5/5 X4 ext, Normal Tone, Sensation Intact Psych Exam: Positive: Mental status NL, Mood NL, Memory Intact, Oriented x 3 Vital Signs Vital Signs Date Time Temp Pulse Resp B/P (MAP) Pulse Ox O2 Delivery O2 Flow Rate FiO2 11/05/17 13:18 105 18 147/91 (109) 90 Room Air 11/05/17 11:02 2.0 11/05/17 10:13 98.3 Laboratory Data Labs 24H Laboratory Tests 2 11/05/17 10:44: Immature Granulocyte % (Auto) 0.5H, White Blood Count 8.1, Red Blood Count 6.03 , Hemoglobin 17.4, Hematocrit 52.0, Mean Corpuscular Volume 86.2, Mean Corpuscular Hemoglobin 28.9, Mean Corpuscular Hemoglobin Concent 33.5, Red Cell Distribution Width 12.6, Platelet Count 217, Neutrophils (%) (Auto) 49.8, Lymphocytes (%) (Auto) 21.1L, Monocytes (%) (Auto) 11.1H, Eosinophils (%) (Auto ) 16.9H, Basophils (%) (Auto) 0.6, Neutrophils # (Auto) 4.0, Lymphocytes # (Auto ) 1.7, Monocytes # (Auto) 0.9H, Eosinophils # (Auto) 1.4H, Basophils # (Auto) 0.1, Immature Granulocyte # (Auto) 0.0, Nucleated Red Blood Cells % (auto) 0.0, Anion Gap 5L, Glomerular Filtration Rate > 60.0, Blood Urea Nitrogen 12, Creatinine 1.02, Sodium Level 141, Potassium Level 4.4, Chloride Level 104, Carbon Dioxide Level 32, Calcium Level 9.3 CBC/BMP Laboratory Tests 11/05/17 10:44 Red Blood Count 6.03, Mean Corpuscular Volume 86.2, Mean Corpuscular Hemoglobin 28.9, Mean Corpuscular Hemoglobin Concent 33.5, Red Cell Distribution Width 12.6 , Neutrophils (%) (Auto) 49.8, Lymphocytes (%) (Auto) 21.1 L, Monocytes (%) ( Auto) 11.1 H, Eosinophils (%) (Auto) 16.9 H, Basophils (%) (Auto) 0.6, Neutrophils # (Auto) 4.0, Lymphocytes # (Auto) 1.7, Monocytes # (Auto) 0.9 H, Eosinophils # (Auto) 1.4 H, Basophils # (Auto) 0.1, Calcium Level 9.3 Assessment/Plan Asthma exacerbation with hypoxia dyspnea associated with cough with blood-tinged sputum, pleuritic chest pain, wheezing worsening over 3 days labs normals, afebrile. Unlikely to be infectious Duonebs q8 and q4prn Solumedrol 60 bid sputum culture pending Hx substance abuse hx IV drug & alcohol abuse. Quit in June since incarcerated monitor Chronic hep c elevated liver enzymes not currently on home meds for treatment f/u outpatient with ID Dr. Koch DVT ppx: Lovenox Disposition: will admit to hospital and transfer to Dr. Stokes's service in am. Plan / VTE VTE Prophylaxis Ordered?: Yes (Lovenox) GME ATTESTATION GME ATTESTATION My faculty preceptor for this patient encounter was physically present during the encounter and was fully available. All aspects of the patient interview, examination, medical decision making process, and medical care plan development were reviewed and approved by the faculty preceptor. The faculty preceptor is aware and concurs with the plan as stated in the body of this note and will attest to such by his/her cosignature. ATTENDING NOTE Attending Note: I have independently examined this patient and all aspects of the exam and treatment decisions have been discussed with the resident. A member of the hospitalist staff will continue to follow this patient through discharge. CLEMENTE MARTINEZ DO Nov 05, 2017 13:26 ALTAGRACIA SCHAEFFER DO Nov 08, 2017 15:33
[2017-11-05] MEDS: IPRATROPIUM 0.5MG/ALBUTEROL 2.5MG INH SOL UD 3ML (DUONEB)(J7620) NEB SCH (15:56)
[2017-11-05] MEDS: methylPREDNISolone INJ 125 MG/2 ML VIAL (J2930) IV SCH (16:43)
[2017-11-05 19:00] VITALS: BP 156/83
[2017-11-06] MEDS: IPRATROPIUM 0.5MG/ALBUTEROL 2.5MG INH SOL UD 3ML (DUONEB)(J7620) NEB SCH ×2 (00:31→08:39)
[2017-11-06] MEDS: methylPREDNISolone INJ 125 MG/2 ML VIAL (J2930) IV SCH (03:28)
[2017-11-06 03:42] VITALS: BP 121/65
[2017-11-06 07:28] LABS: ANION GAP 9 MEQ/L (8-16); BLOOD UREA NITROGEN 17 MG/DL (7-18); CALCIUM LEVEL 8.9 MG/DL (8.5-10.1); CARBON DIOXIDE LEVEL 25 MEQ/L (21-32); CHLORIDE LEVEL 106 MEQ/L (98-107); CREATININE FOR GFR 0.89 MG/DL (0.70-1.30); GLOMERULAR FILTRATION RATE > 60.0 (>60); GLUCOSE, FASTING 131 MG/DL (70-105); POTASSIUM SERUM 4.5 MEQ/L (3.5-5.1); SODIUM LEVEL 140 MEQ/L (136-145)
[2017-11-06 07:35] LABS: MEAN CORPUSCULAR HEMOGLOBIN 29.1 pg (27.0-33.0); MEAN CORPUSCULAR HGB CONC 34.4 g/dl (32.0-36.5); MEAN CORPUSCULAR VOLUME 84.4 fl (80.0-96.0); PLATELET COUNT, AUTOMATED 230 10^3/uL (150-450); RED CELL DISTRIBUTION WIDTH 12.5 % (11.5-14.5); WHITE BLOOD COUNT 18.8 10^3/uL (4.0-10.0)
[2017-11-06] MEDS ORDERED: ENOXAPARIN 40 MG/0.4 ML SYRINGE (J1650) SC SCH (09:00)
[2017-11-06 09:15] VITALS: BP 148/80
[2017-11-06] MEDS ORDERED: PRED10TA2 PO (10:48)
--- NOTE | 2017-11-06 12:20 | DS.PDOC ---
Discharge Summary General Date of Admission Nov 05, 2017 at 12:21 Date of Discharge 11/06/17 Discharge Summary PROCEDURES PERFORMED DURING STAY: None. ADMITTING/DISCHARGE DIAGNOSES: 1. . Asthma exacerbation COMPLICATIONS/CHIEF COMPLAINT: Acute Respiratory Failure With Hypoxia. HISTORY OF PRESENT ILLNESS: . 26-year-old male with past medical history of chronic hepatitis C, IV drug abuse , anxiety, depression, and asthma presented to the ER with a chief complaint of increased shortness of breath, wheezing over the last 3 days. The patient states that he had multiple sick contacts in his cellmates at a local incarceration facility. The patient denied any fevers, chills, headaches, abdominal pain, chest pain, palpitations, or any nausea/vomiting/diarrhea. The patient was subsequently admitted to the hospitalist service for asthma exacerbation. During hospitalization, the patient was provided with IV steroid treatment as well as serial nebulizer therapy. At this time, the patient states that he is feeling much better and is eager to be discharged from the hospital. The patient was down titrated off of supplemental oxygen here at the hospital, and was noted to be comfortably saturating 92% on room air. He was also able to ambulate in the halls without any acute complaints. At this time, the patient will be discharged on a tapering dose of prednisone which he is to complete over the next 30 days. I have asked the patient to follow-up with his primary care physician within one week. In addition, the patient has been consulted to return to the ER for any acute emergencies. DISCHARGE MEDICATIONS: Please see below. ALLERGIES: Please see below. PHYSICAL EXAMINATION ON DISCHARGE: VITAL SIGNS: Please see below. GENERAL: Awake, alert, oriented 3 HEENT: Normocephalic, atraumatic NECK: No JVD CARDIOVASCULAR EXAMINATION: Regular rate, regular rhythm, normal S1, S2 RESPIRATORY EXAMINATION: Mostly Clear to auscultation bilaterally, with faint expiratory wheeze ABDOMINAL EXAMINATION: Soft, nontender, nondistended EXTREMITIES: No erythema or tenderness SKIN: Multiple tattoos noted LABORATORY DATA: Please see below. IMAGING: Chest one-view HISTORY: Shortness of breath Comparison: 09/25/2017 The lungs are clear. The heart is normal in size. The pulmonary vasculature is normal in appearance. Impression: No acute disease. PROGNOSIS: Fair ACTIVITY: As tolerated. DIET: . Regular diet DISCHARGE PLAN: DISPOSITION: . Discharge back to the custody of the incarceration facility DISCHARGE INSTRUCTIONS: The patient will be discharged on a tapering dose of prednisone which he is to complete over the next 30 days. I have asked the patient to follow-up with his primary care physician within one week. In addition, the patient has been consulted to return to the ER for any acute emergencies. DISCHARGE CONDITION: Stable. TIME SPENT ON DISCHARGE: Greater than 30 minutes. Vital Signs/I&Os Vital Signs Date Time Temp Pulse Resp B/P (MAP) Pulse Ox O2 Delivery O2 Flow Rate FiO2 11/06/17 10:09 89 Room Air 11/06/17 10:01 1.0 11/06/17 09:15 98.7 97 21 148/80 (102) I&O- Last 24 Hours up to 6 AM 11/07/17 06:00 Intake Total 360 ml Balance 360 ml Laboratory Data Labs 24H Laboratory Tests 2 11/06/17 06:21: Nucleated Red Blood Cells % (auto) 0.0, Anion Gap 9, Glomerular Filtration Rate > 60.0, Blood Urea Nitrogen 17, Creatinine 0.89, Sodium Level 140, Potassium Level 4.5, Chloride Level 106, Carbon Dioxide Level 25, Calcium Level 8.9 CBC/BMP Laboratory Tests 11/06/17 06:21 Red Blood Count 5.40, Mean Corpuscular Volume 84.4, Mean Corpuscular Hemoglobin 29.1, Mean Corpuscular Hemoglobin Concent 34.4, Red Cell Distribution Width 12.5 , Calcium Level 8.9 Discharge Medications Scheduled Prednisone (Prednisone) 10 Mg Tab, 10 MG PO TAPER Take 4 tabs daily x 3 days, then 3 tabs daily x 3 days, then 2 tabs daily x 3 days, then 1 tab daily x 3 days and stop Scheduled PRN Albuterol Sulfate (Proventil Hfa) 167 Puff/6.7 Gm Aers, 2 PUFFS INH QID PRN for SHORTNESS OF BREATH, (Reported) Allergies Coded Allergies: No Known Allergies (Unverified , 02/10/17) KATI ELAINE MD Nov 06, 2017 12:20
== END 2017-11-06 11:48 ==
LOC: M ED 10:13 → M ED INP 12:21 → M MS4PR 18:53
PROVIDERS: ADMIT Hospitalist; ATTEND Internal Medicine
DX: J45.901 Unspecified asthma with (acute) exacerbation (principal); Z20.828 Contact with and (suspected) exposure to other viral communicable diseases; R09.02 Hypoxemia; B18.2 Chronic viral hepatitis C; F19.10 Other psychoactive substance abuse, uncomplicated; F41.9 Anxiety disorder, unspecified; F32.9 Major depressive disorder, single episode, unspecified; Z79.52 Long term (current) use of systemic steroids
CPT/HCPCS: 36415; 71010; 80048; 80076; 85025; 85027; 94640; 96372; 96374; 96375; 96376; 99284; J1650; J2930; J3475